=== PATIENT | male | born 1990 | race Caucasian/White ===

== ENCOUNTER 2022-05-11 19:01 | Emergency (ER) | payer OTHER, SELFPAY ==
--- NOTE | ~2022-05-11 | XR_ITS ---
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 RESULT: Lines, tubes, and devices: None. Lungs and pleura: Clear. Cardiomediastinal silhouette: Stable. Other: No acute osseous or upper abdominal finding. IMPRESSION: No acute cardiopulmonary process. Reviewed, dictated and finalized at location K. NAUTICAL RESEARCH ENGINEER
--- NOTE | 2022-05-11 19:04 | ECG_ITS ---
Measurements Intervals [place] Rate: 85 P: 21 [place]: 154 QRS: 20 QRSD: 109 T: 9 QT: 357 QTc: 425 Interpretive Statements SINUS RHYTHM NONSPECIFIC T-WAVE ABNORMALITY- INF/LAT LEADS BORDERLINE ECG COMPARED TO ECG 08/05/2018 20:09:05 T-WAVE ABNORMALITY NOW PRESENT Electronically Signed On 05-11-2022 20:44:38 CLAIM PROCESSING SPECIALIST by Armani Flores D.O.
[2022-05-11 19:05] VITALS: BP 124/76; PULSE 93; RESP 16; TEMP 36.5; O2SAT 99
[2022-05-11 19:21] LABS: Basophils Percent Auto 0.5 % (0.2-1.2); Eosinophils Absolute Auto 0.2 K/mm3 (0-0.3); Eosinophils Percent Auto 2.3 % (0-4.4); Hematocrit 44.9 % (42.0-52.0); Hemoglobin 15.7 g/dL (14.0-18.0); Immature Granulocyte Absolute 0.04 K/mm3 (0.00-0.031); Immature Granulocyte Percent A 0.5 % (0-0.5); Lymphocytes Absolute Auto 2.15 K/mm3 (0.9-3.2); Lymphocytes Percent Auto 24.7 % (18.3-44.2); Mean Corpuscular Hemoglobin 30.2 pg (26-34); Mean Corpuscular Volume 86.3 fl (80-100); Mean Platelet Volume 9.2 fl (7.4-10.4); Monocytes Absolute Auto 0.7 K/mm3 (0.1-0.6); Monocytes Percent Auto 8.5 % (2.6-8.5); Neutrophils Absolute Auto 5.5 K/mm3 (1.3-6.7); Neutrophils Percent Auto 63.5 % (45.5-73.1); Platelet Count Result 339 k/mm3 (150-375); Red Cell Distribution Width 12.4 % (11.5-14.5); White Blood Count 8.7 K/mm3 (4.5-10.0)
[2022-05-11 19:35] LABS: Alanine Aminotransferase 89 U/L (6-50); Albumin Level 4.5 g/dL (3.5-5.1); Alkaline Phosphatase 61 U/L (38-126); Anion Gap 5 mmol/L (8-16); Aspartate Amino Transferase 48 U/L (17-59); Bilirubin,Total 0.5 mg/dL (0.2-1.3); Blood Urea Nitrogen 14 mg/dL (9-20); Carbon Dioxide 29 mmol/L (22-30); Chloride 102 mmol/L (98-107); Estimated CRCL calculation 152 ml/min; Estimated Glomerular Filt Rate > 60; Glucose 128 mg/dL (65-110); Potassium 3.5 mmol/L (3.4-5.0); Sodium 136 mmol/L (137-145)
[2022-05-11 20:21] LABS: Add Urine Microscopic? YES; Appearance Urine Clear (Clear); Bilirubin Urine Negative (Negative); Blood Urine Trace-Intact (Negative); Color Urine Yellow (Yellow); Glucose Urine UA Negative (Negative); Ketones Urine Trace mg/dL (Negative); Leukocyte Esterase Ur Negative LEU/UL (Negative); Nitrate Urine Negative (Negative); Protein Urine Negative (Negative); Specific Grav Ur 1.025 (1.001-1.035); Urobilinogen Urine 0.2 mg/dL (<2.0)
[2022-05-11 20:25] LABS: Bacteria Urine Trace /hpf; Mucus Urine Heavy /lpf
--- NOTE | 2022-05-11 22:16 | ED.GENADULT ---
HPI - General Adult General Chief complaint: Recheck/Abnormal Lab/Rx Stated complaint: high blood pressure with headache, chest tightness Time Seen by Provider: 05/11/22 21:56 History of Present Illness HPI narrative: Mr. Moncada is a 31-year-old gentleman who presented emergency room with complaints of elevated blood pressure. Patient states that he has been seen at multiple emergency rooms and urgent cares and when he has been seen his blood pressure has been mildly elevated. Patient states over the last few days he has been having chest discomfort that is pinpoint in nature and lasts seconds at a time. Patient denies any associated shortness breath, nausea, vomiting, or radiation of the pain. Patient states that nothing makes the pain worse. Patient states that the pain is too quick for him to try to take anything to make the pain improved. Patient denies taking any medications at home. Related Data Allergies Allergy/AdvReac Type Severity Reaction Status Date / Time Penicillins Allergy Unknown Unknown Verified 08/05/18 20:23 Review of Systems Review of Systems: A 12 point review of systems was completed patient all pertinent positive and negative per HPI the remainder are unremarkable. Exam Narrative: Constitutional: Patient is well-nourished in no acute distress. Patient is alert and oriented x3 HEENT: Moist mucous membranes. No scleral icterus. No lymphadenopathy. Neck: No carotid bruits noted no JVD noted Lungs: Lung sounds are clear to auscultation bilaterally. No accessory muscle use. No rhonchi, rales, or wheezes noted. Cardiovascular: Apical pulse is regular rate and rhythm. S1-S2 noted, no S3 or S4 noted. No gallops, murmurs, or rubs noted. Chest wall: Chest pain is not reproducible with palpation. Abdomen: Soft, round, and nontender. No palpable masses. Extremities: No edema. Nontender. Skin: No rashes or lesions. Warm and dry. Skin is intact. Neurological: No focal neurological deficits. Cranial nerves II-XII grossly intact. Psychiatric: Cooperative, appropriate mood, and affect Course Course Emergency Course: Did discuss with patient that his blood pressure is normal today and there is no need for any medication at this time. Did discuss with patient that he needs to keep his follow-up visit with his primary care provider that he is already made. Patient verbalized understanding. Vital Signs Vital signs: Vital Signs Temperature 36.5 C 05/11/22 19:05 Pulse Rate 93 05/11/22 19:05 Respiratory Rate 16 05/11/22 19:05 Blood Pressure 124/76 05/11/22 19:05 Pulse Oximetry 99 05/11/22 19:05 Temperature 36.5 C 05/11/22 19:05 Pulse Rate 93 05/12/22 01:10 Respiratory Rate 19 05/12/22 01:10 Blood Pressure 139/89 05/12/22 01:10 Pulse Oximetry 96 05/12/22 01:10 Medical Decision Making Differential Diagnosis Differential Diagnosis: costochondritis, atypical chest pain, HTN, Vital Signs Vital Signs: Vital Signs Temperature 36.5 C 05/11/22 19:05 Pulse Rate 93 05/11/22 19:05 Respiratory Rate 16 05/11/22 19:05 Blood Pressure 124/76 05/11/22 19:05 Pulse Oximetry 99 05/11/22 19:05 Temperature 36.5 C 05/11/22 19:05 Pulse Rate 93 05/12/22 01:10 Respiratory Rate 05/12/22 01:10 Blood Pressure 139/89 05/12/22 01:10 Pulse Oximetry 96 05/12/22 01:10 Lab Data 05/11/22 19:13 05/11/22 19:13 Labs: Lab Results 05/11/22 05/11/22 05/11/22 Range/Units 19:13 19:13 19:13 WBC 8.7 (4.5-10.0) K/mm3 RBC 5.20 (4.6-6.20) M/mm3 Hgb 15.7 (14.0-18.0) g/dL Hct 44.9 (42.0-52.0) % MCV 86.3 (80-100) fl MCH 30.2 (26-34) pg MCHC 35.0 (32-36) g/dl RDW 12.4 (11.5-14.5) % Plt Count 339 (150-375) k/mm3 MPV 9.2 (7.4-10.4) fl Immature Gran % (Auto) 0.5 (0-0.5) % Neut % (Auto) 63.5 (45.5-73.1) % Lymph % (Auto) 24.7 (18.3-44.2) % [place] % (Auto) 8
[2022-05-11 22:30] LABS: Troponin I < 0.012 ng/mL (0.000-0.034)
[2022-05-11 23:36] LABS: Troponin I < 0.012 ng/mL (0.000-0.034)
[2022-05-12 01:10] VITALS: BP 139/89; PULSE 93; RESP 19; O2SAT 96
== END 2022-05-12 01:19 | disposition home or self-care (01) ==
PROVIDERS: Emergency Medicine; Emergency Provider Nurse Practitioner Adult Health
DX: R07.89 Other chest pain (principal); R94.31 Abnormal electrocardiogram [ECG] [EKG]
CPT/HCPCS: 36415; 71046; 80053; 81001; 84484; 85025; 93005; 99284

== ENCOUNTER 2023-06-03 11:22 | Emergency (ER) | payer OTHER, SELFPAY ==
[2023-06-03] VITALS (7 sets, daily range): BP systolic 143–172; BP diastolic 91–125; PULSE 79–104; RESP 12–16; TEMP 36.5–36.7; O2SAT 95–97
--- NOTE | ~2023-06-03 | XR_ITS ---
EXAMINATION: XR chest 2V 06/03/2023 13:09 INDICATION: Cough and dizziness PROCEDURE: 2 view chest COMPARISON: 05/11/2022 FINDINGS: The lungs are clear. The cardiomediastinal silhouette is within normal limits. There are no pleural effusions. There is no pneumothorax suspected. IMPRESSION: 1: NO ACUTE CARDIOPULMONARY DISEASE. Reviewed, dictated and finalized at location B. RANGE TENDER
--- NOTE | 2023-06-03 12:25 | ECG_ITS ---
Measurements Intervals [place] Rate: 74 P: 17 [place]: 145 QRS: 31 QRSD: 91 T: 32 QT: 381 QTc: 425 Interpretive Statements SINUS RHYTHM BASELINE ARTIFACT- I, II, III, AVR, AVL, AVF NORMAL ECG COMPARED TO ECG 05/11/2022 19:10:36 NO SIGNIFICANT CHANGES Electronically Signed On 06-03-2023 16:08:33 ENVIRONMENTAL ENGINEERING PROFESSOR by Armani Flores D.O.
--- NOTE | 2023-06-03 12:25 | ED.DIZZY ---
HPI - Dizziness General Chief Complaint: Dizziness Stated Complaint: dizziness Time Seen by Provider: 06/03/23 12:00 History of Present Illness HPI Narrative: Patient is a 32-year-old male presenting with lightheadedness. Patient states that he developed a cough about a week ago. States that he had a fever for a couple days as well as a scratchy throat and runny nose. Started experiencing lightheadedness with standing around this time. He went to his PCP's office a couple of days ago and they diagnosed him with anxiety and started him on hydroxyzine. States that he has been taking this be continues to feel lightheaded with standing. Reports decreased appetite but no vomiting. Reports some diarrhea. No dysuria or hematuria. No leg swelling, chest pain, shortness of breath, abdominal pain. Related Data Allergies Allergy/AdvReac Type Severity Reaction Status Date / Time Penicillins Allergy Unknown Unknown Verified 08/05/18 20:23 Review of Systems Review of Systems: All systems reviewed & are unremarkable except as noted in HPI and below Exam Narrative: GENERAL: Well-appearing, in no acute distress, pleasant cooperative HEAD: Normocephalic, atraumatic. EYES: PERRLA and EOMI. ENT: Mucous membranes tacky NECK: Supple. CHEST: Clear to auscultation. No respiratory distress. HEART: Regular rate and rhythm. ABDOMEN: Soft, nontender, nondistended EXTREMITIES: Normal range of motion. No edema. SKIN: Warm, dry, no rash. NEURO: No focal deficits. Alert and oriented x3. PSYCH: Normal mood and affect. Course Vital Signs Vital signs: Vital Signs Temperature 97.7 F 06/03/23 11:25 Pulse Rate 101 H 06/03/23 11:25 Respiratory Rate 16 06/03/23 11:25 Blood Pressure 149/101 H 06/03/23 11:25 Pulse Oximetry 96 06/03/23 11:25 Temperature 98.1 F 06/03/23 14:20 Pulse Rate 79 06/03/23 14:20 Respiratory Rate 16 06/03/23 14:20 Blood Pressure 161/95 H 06/03/23 14:20 Pulse Oximetry 96 06/03/23 14:20 Oxygen Delivery Room Air 06/03/23 11:34 MDM - Dizziness MDM Narrative Medical decision making narrative: 32-year-old male presenting with lightheadedness. Patient is hypertensive, mildly tachycardic on arrival. Tachycardia had resolved by the time I evaluated him. Exam remarkable for the above. EKG per my interpretation shows normal sinus rhythm, no ST elevations or depressions. Similar to prior. Blood work is unremarkable. UA with a few casts. Chest x-ray without abnormality. Patient received 2 L of fluids as well as some IV Zofran and states that he is feeling better. Feel he is safe for outpatient management. PCP follow-up recommended. Appropriate return precautions given. Discharged in stable condition. Differential Diagnosis Differential diagnosis: Likely orthostatic hypotension and other (dehydration, viral infection) Medical Records Attestation: I reviewed the patient's medical records. Lab Data Attestation: I reviewed the patient's lab results. 06/03/23 12:51 06/03/23 12:51 Labs: Lab Results 06/03/23 06/03/23 Range/Units 12:51 12:59 WBC 5.2 (4.5-10.0) K/mm3 RBC 5.69 (4.6-6.20) M/mm3 Hgb 17.0 (14.0-18.0) g/dL Hct 50.2 (42.0-52.0) % MCV 88.2 (80-100) fl MCH 29.9 (26-34) pg MCHC 33.9 (32-36) g/dl RDW 12.6 (11.5-14.5) % Plt Count 228 (150-375) k/mm3 MPV 9.6 (7.4-10.4) fl Immature Gran % (Auto) 0.4 (0-0.5) % Neut % (Auto) 54.4 (45.5-73.1) % Lymph % (Auto) 35.9 (18.3-44.2) % [place] % (Auto) 7.6 (2.6-8.5) % Eos % (Auto) 1.3 (0-4.4) % Baso % (Auto) 0.4 (0.2-1.2) % Lymph # (Auto) 1.88 (0.9-3.2) K/mm3 [place] # (Auto) 0.4 (0.1-0.6) K/mm3 Eos # (Auto) 0.1 (0-0.3) K/mm3 Baso # (Auto) 0.0 (0.0-0.1) K/mm3 Abs Immat Gran (auto) 0.02 (0.00-0.031) K/mm3 Absolute Neuts (auto) 2.9 (1.3-6.7) K/mm3 Absolute Nucleated RBC 0.0 (0.0-0.012) K/mm3 Nucleated RBC % 0.0 (0.0-0.2)
[2023-06-03] MEDS: SODIUM CHLORIDE 0.9% IV 1,000 ML 999 ML IV CONT ×2 (12:49→14:19)
[2023-06-03 12:57] LABS: Basophils Percent Auto 0.4 % (0.2-1.2); Eosinophils Absolute Auto 0.1 K/mm3 (0-0.3); Eosinophils Percent Auto 1.3 % (0-4.4); Hematocrit 50.2 % (42.0-52.0); Immature Granulocyte Absolute 0.02 K/mm3 (0.00-0.031); Immature Granulocyte Percent A 0.4 % (0-0.5); Lymphocytes Absolute Auto 1.88 K/mm3 (0.9-3.2); Lymphocytes Percent Auto 35.9 % (18.3-44.2); Mean Corpuscular HGB Conc 33.9 g/dl (32-36); Mean Corpuscular Hemoglobin 29.9 pg (26-34); Mean Corpuscular Volume 88.2 fl (80-100); Mean Platelet Volume 9.6 fl (7.4-10.4); Monocytes Absolute Auto 0.4 K/mm3 (0.1-0.6); Monocytes Percent Auto 7.6 % (2.6-8.5); Neutrophils Absolute Auto 2.9 K/mm3 (1.3-6.7); Neutrophils Percent Auto 54.4 % (45.5-73.1); Platelet Count Result 228 k/mm3 (150-375); Red Blood Count 5.69 M/mm3 (4.6-6.20); Red Cell Distribution Width 12.6 % (11.5-14.5); White Blood Count 5.2 K/mm3 (4.5-10.0)
[2023-06-03 13:12] LABS: Alanine Aminotransferase 92 U/L (6-50); Albumin Level 4.5 g/dL (3.5-5.1); Alkaline Phosphatase 66 U/L (38-126); Anion Gap 10 mmol/L (8-16); Aspartate Amino Transferase 53 U/L (17-59); Bilirubin,Total 0.6 mg/dL (0.2-1.3); Blood Urea Nitrogen 14 mg/dL (9-20); Calcium 9.2 mg/dL (8.4-10.2); Carbon Dioxide 26 mmol/L (22-30); Chloride 105 mmol/L (98-107); Estimated CRCL calculation 152 ml/min; Estimated Glomerular Filt Rate > 60; Glucose 101 mg/dL (65-110); Lipase 58 U/L (23-300); Magnesium 2.3 mg/dL (1.6-2.3); Sodium 141 mmol/L (137-145)
[2023-06-03 13:22] LABS: Add Urine Microscopic? YES; Appearance Urine Clear (Clear); Bacteria Urine None Seen /hpf; Bilirubin Urine Negative (Negative); Blood Urine Negative (Negative); Color Urine Dark Yellow (Yellow); Glucose Urine UA Negative (Negative); Ketones Urine 2+ mg/dL (Negative); Leukocyte Esterase Ur Negative LEU/UL (Negative); Mucus Urine Present /lpf; Need Manual Microscopic Reviewed; Nitrate Urine Negative (Negative); Non Pathogenic Casts 0-2; Protein Urine 1+ mg/dL (Negative); Specific Grav Ur 1.025 (1.001-1.035); Squamous Epithelial Cell Urine None seen /hpf (Few); WBC Urine 0-5 /hpf; pH Urine 5.5 (5.0-9.0)
[2023-06-03 13:23] LABS: Troponin I < 0.012 ng/mL (0.000-0.034)
[2023-06-03 13:33] LABS: Influenza A QL RT-PCR Negative (Negative); Influenza B QL RT-PCR Negative (Negative); RSV RNA, RT-PCR Negative (Negative); SARS-CoV-2 RNA PCR Negative (Negative)
[2023-06-03] MEDS: ONDANSETRON INJ 4 MG/2 ML VIAL IV PUSH (14:20)
== END 2023-06-03 16:31 | disposition home or self-care (01) ==
PROVIDERS: Emergency Provider Emergency Medicine
DX: B34.9 Viral infection, unspecified (principal); Z20.822 Contact with and (suspected) exposure to COVID-19
CPT/HCPCS: 36415; 71046; 80053; 81001; 83690; 83735; 84484; 85025; 87637; 93005; 96361; 96374; 99284; J2405; J7030